=== PATIENT | female | born 1975 | race American Indian/Alaskan Native ===

== ENCOUNTER 2020-07-30 20:18 | Emergency (ER) | payer MEDICAID ==
--- NOTE | 2020-07-30 22:19 | Emergency Department Report ---
<RICHARD TEAGUE - Last Filed: 07/31/20 00:00> ED Lower Extremity HPI - General Chief Complaint: Extremity Injury, Lower Stated Complaint: POSSIBLE BROKEN ANKLE Source: patient Mode of arrival: Wheelchair Limitations: No Limitations - History of Present Illness MD Complaint: ankle injury, foot injury -: Sudden, This evening Injury: Ankle: Left, Foot: Left Type of Injury: inversion Place: home Severity: mild, moderate Improves With: nothing Worsens With: nothing Context: fall Other Symptoms: loss of consciousness Associated Symptoms: swelling, unable to bear weight - Related Data Previous Rx's Medication Instructions Recorded Last Taken Type Ketorolac [Toradol] 10 mg PO Q6H PRN #15 tablet 07/31/20 Unknown Rx Ondansetron [Zofran ODT TAB] 8 mg PO Q12HR #14 tab.rapdis 07/31/20 Unknown Rx Oxycodone HCl/Acetaminophen 1 each PO Q6HR PRN #14 tablet 07/31/20 Unknown Rx [Percocet 10/325 mg] Allergies Allergy/AdvReac Type Severity Reaction Status Date / Time heparin Allergy Swelling Verified 07/30/20 22:20 ED Review of Systems Comment: All other systems reviewed and negative ED Past Medical Hx - Medications Home Medications: Home Medications Medication Instructions Recorded Confirmed Last Taken Type Ketorolac [Toradol] 10 mg PO Q6H PRN #15 tablet 07/31/20 Unknown Rx Ondansetron [Zofran ODT TAB] 8 mg PO Q12HR #14 tab.rapdis 07/31/20 Unknown Rx Oxycodone HCl/Acetaminophen 1 each PO Q6HR PRN #14 tablet 07/31/20 Unknown Rx [Percocet 10/325 mg] ED Physical Exam - General Limitations: No Limitations General appearance: alert, in no apparent distress - Head Head exam: Present: atraumatic, normocephalic - Eye Eye exam: Present: normal appearance, PERRL, EOMI Pupils: Present: normal accommodation - ENT ENT exam: Present: normal exam, normal orophraynx, mucous membranes moist - Neck Neck exam: Present: normal inspection, full ROM - Respiratory Respiratory exam: Present: normal lung sounds bilaterally. Absent: respiratory distress, wheezes, rales, chest wall tenderness, accessory muscle use - Cardiovascular Cardiovascular Exam: Present: regular rate, normal rhythm. Absent: systolic murmur, diastolic murmur, rubs, gallop - GI/Abdominal GI/Abdominal exam: Present: soft, normal bowel sounds. Absent: distended, tenderness, hypoactive bowel sounds, organomegaly - Expanded Lower Extremity Exam Left Lower Leg exam: Present: tenderness, swelling, deformity. Absent: erythema, palpable cord Ankle exam: Present: tenderness, swelling, ecchymosis. Absent: abrasion, laceration Foot/Toe exam: Present: tenderness, swelling, ecchymosis. Absent: full ROM (Decreased range of motion secondary to pain), abrasion, laceration, dislocation, erythema, amputation, puncture wound Neuro vascular tendon exam: Present: no vascular compromise - Back Exam Back exam: Present: normal inspection. Absent: CVA tenderness (R), CVA tenderness (L) - Neurological Exam Neurological exam: Present: alert, oriented X3, CN II-XII intact, normal gait - Psychiatric Psychiatric exam: Present: normal affect, normal mood. Absent: anxious, flat affect - Skin Skin exam: Present: warm, dry, intact, normal color. Absent: rash, diaphoretic, urticaria - Orthopedic Splinting/Casting Injury #1 Side: left Lower Extremity Injury Location: ankle, foot Lower Extremity Immobilizer: posterior splint, stirrup splint Other Orthopedic Equipment: crutches ED Lower Extremity MDM - Radiology Data Radiology results: report reviewed [place] [address] XRay Report Signed Patient: KAVON CERDA MR#: [id number] 28 : 1975 Acct:[id number] Age/Sex: 45 / F ADM Date: 07/30/20 Loc: ED Attending Dr: Ordering Physician: URBANO PIMENTEL Date of Service: 07/30/20 Procedure(s): XR foot 2V LT Accession Number(s): [id number] cc: URBANO PIMENTEL Fluoro Time In Minutes: EXAMINATION: Left foot radiograph, 2 views, 07/30/2020 CLINICAL INFORMATION: Left foot and ankle trauma COMPARISON: None. FINDINGS: There is no evidence of acute bony fracture of the left foot. Partially visualized are significantly comminuted fractures of the distal tibia and fibula with associated soft tissue swelling. Signer Name: Louisa Amador MD Signed: 07/30/2020 11:26 PM Workstation Name: [id number] Transcribed By: SAMI Dictated By: Louisa Amador MD Electronically Authenticated By: Louisa Amador MD Signed Date/Time: 07/30/202325 DD/ 24 TD/TT: [address] [place] [address] XRay Report Signed Patient: KAVON CERDA MR#: [id number] [birth year] : 1975 Acct:[id number] Age/Sex: 45 / F ADM Date: 07/30/20 Loc: ED Attending Dr: Ordering Physician: URBANO PIMENTEL Date of Service: 07/30/20 Procedure(s): XR ankle 2V LT Accession Number(s): [id number] cc: URBANO PIMENTEL Fluoro Time In Minutes: EXAMINATION: Left ankle radiograph, 2 views, 07/30/2020 CLINICAL INFORMATION: Left ankle injury and trauma COMPARISON: None. FINDINGS: There are slightly angulated significantly comminuted fractures of the distal tibia and fibula with associated soft tissue swelling. There is no evidence of ankle dislocation. Signer Name: Louisa Amador MD Signed: 07/30/2020 11:25 PM Workstation Name: [id number] Transcribed By: SAMI Dictated By: Louisa Amador MD Electronically Authenticated By: Louisa Amador MD Signed Date/Time: 07/30/202324 DD/ 23 TD/TT: Print Cancel - Medical Decision Making 45-year-old F Polish female [facility] emerge department status post trip and fall on a cobblestone pavement resulting in swelling and and what appears to be a deformity to her foot. X-ray did support fracture comminuted to the the distal tibia and fibula. The patient does not currently demonstrate complications of fracture site such as compartment syndrome, arterial or nerve nerve injury. The fracture has been satisfactorily immobilized and the patient has been given the appropriate analgesia. Be discharged with strict return precaution ED Disposition Clinical Impression: Tibia/fibula fracture Qualifiers: Encounter type: initial encounter Fracture type: closed Laterality: left Qualified Code(s): S82.202A - Unspecified fracture of shaft of left tibia, initial encounter for closed fracture; S82.402A - Unspecified fracture of shaft of left fibula, initial encounter for closed fracture Disposition: DC-01 TO HOME OR SELFCARE Is pt being admited?: No Does the pt Need Aspirin: No Condition: Stable Instructions: Fibular Fracture Rehab-SportsMed, Tibial Shaft Fracture Rehab- SportsMed, Cast or Splint Care, Adult, [id number], Tibial Fracture, Adult, [id number], Cast or Splint Care, Adult Prescriptions: Oxycodone HCl/Acetaminophen [Percocet 10/325 mg] 1 each PO Q6HR PRN #14 tablet PRN Reason: Pain Ketorolac [Toradol] 10 mg PO Q6H PRN #15 tablet PRN Reason: Pain Ondansetron [Zofran ODT TAB] 8 mg PO Q12HR #14 tab.rapdis Referrals: [facility] [Provider Group] - 3-5 Days ALECIA HEWITT MD [Staff Physician] - 3-5 Days Forms: Work/School Release Form(ED) <ROD ALFARO III - Last Filed: 09/11/20 23:00> ED Review of Systems ROS: Stated complaint: POSSIBLE BROKEN ANKLE Other details as noted in HPI ED Course Vital Signs 07/30/20 07/31/20 22:15 05:34 Temperature 98.4 F Pulse Rate 114 H 91 H Respiratory 14 17 Rate Blood Pressure 115/54 O2 Sat by Pulse 98 100 Oximetry - Reevaluation(s) Reevaluation #1: I reviewed the findings and management of this patient in real-time and I have personally seen and examined this patient and participated in the decision making for this patient with the midlevel. Patient is a 45-year-old female that complains of a injury to her left ankle. Patient has tenderness to both sides of her ankle. Patient states the pain is severe. Patient states she twisted her foot and her ankle. Patient denies other injury. I examined the patient. Patient's lung sounds are clear. Patient CV exam reveals a normal S1-S2. Patient's left ankle and foot are tender to palpation. Ecchymosis and swelling noted on the left ankle. Patient had an x-ray done which shows a comminuted fracture of tibia and fibula. I personally reviewed the x-ray. Patient will placed in a splint. 07/31/20 00:13 Reevaluation #2: I discussed all results and clinical findings with patient. I discussed plan of care with patient. Patient agrees with plan of care. Patient is stable for discharge. Patient will be discharged home. Patient given discharge instructions. Patient voiced understanding of discharge instructions. 07/31/20 00:45 Critical care attestation.: If time is entered above; I have spent that time in minutes in the direct care of this critically ill patient, excluding procedure time. ED Disposition Is pt being admited?: No Does the pt Need Aspirin: No Time of Disposition: 01:00
[2020-07-30 22:20] VITALS: BP 115/54
[2020-07-30] MEDS ORDERED: oxyCODONE /ACETAMINOPHEN 5-325MG TAB PO ONE (22:36)
--- NOTE | 2020-07-30 23:30 | XRay Report ---
EXAMINATION: Left ankle radiograph, 2 views, 07/30/2020 CLINICAL INFORMATION: Left ankle injury and trauma COMPARISON: None. FINDINGS: There are slightly angulated significantly comminuted fractures of the distal tibia and fib gómez with associated soft tissue swelling. There is no evidence of ankle dislocation. Signer Name: Louisa Amador MD Signed: 07/30/2020 11:25 PM Workstation Name: [id number]
--- NOTE | 2020-07-30 23:30 | XRay Report ---
EXAMINATION: Left foot radiograph, 2 views, 07/30/2020 CLINICAL INFORMATION: Left foot and ankle trauma COMPARISON: None. FINDINGS: There is no evidence of acute bony fracture of the left foot. Partially visualized are significantly comminuted fractures of the distal tibia and fibula with assoc iated soft tissue swelling. Signer Name: Louisa Amador MD Signed: 07/30/2020 11:26 PM Workstation Name: [id number]
[2020-07-31] MEDS ORDERED: ONDANSETRON 4 MG/2 ML INJ IM ONE (00:34)
[2020-07-31] MEDS ORDERED: MORPHINE 4 MG/1 ML INJ IM ONE (00:34)
== END 2020-07-31 02:10 | disposition home or self-care (01) ==
LOC: ED 20:18
DX: S82.392A Other fracture of lower end of left tibia, initial encounter for closed fracture (principal); S82.832A Other fracture of upper and lower end of left fibula, initial encounter for closed fracture; Z88.8 Allergy status to other drugs, medicaments and biological substances; Z79.899 Other long term (current) drug therapy; W18.39XA Other fall on same level, initial encounter; Y93.89 Activity, other specified; Y92.89 Other specified places as the place of occurrence of the external cause; Y99.8 Other external cause status
CPT/HCPCS: 29515; 73600; 73620; 96372; 99283; J2270; J2405